=== PATIENT | male | born 1980 | race Caucasian/White ===

== ENCOUNTER 2018-03-26 11:57 | Emergency (ER) | payer BC, OTHER ==
--- NOTE | 2018-03-26 13:33 | EDM.PDOC ---
ED HPI GENERAL MEDICAL PROBLEM - General Chief Complaint: Headache Stated Complaint: NUMBNESS IN HANDS Time Seen by Provider: 03/26/18 12:12 Source of Information: Reports: Patient History Limitations: Reports: No Limitations - History of Present Illness INITIAL COMMENTS - FREE TEXT/NARRATIVE: Patient is a 37-year-old male who presents to the ED complaining of numbness and tingling to his hands for the past month. He was evaluated this last week in the clinic and prescribed wrist braces to be worn at night at night for carpal tunnel syndrome. In addition patients been having intermittent headache to the posterior aspect of his head. This started this morning. Had some intermittent blurry vision. There is no weakness, dizziness, chest pain, shortness breath, or any focal neurological deficits. Headache is mild in nature. States he has been under a lot more stress at work and with his family. He's had no symptoms as such. Still anxious. He questions that is not related to his blood pressure. He does not drink caffeinated beverages and or energy drinks. Nor does he smoke and or use recreational drug use. Of note patient has been using Hydroxycut for the past 2 and half weeks with onset of his increased anxiety. Patient has no previous past medical history. There is no first degree relative with coronary disease. He is currently taking no medications. Surgical history noncontributory. Posterior Headache Pain Score (Numeric/FACES): 3 - Related Data Allergies Allergy/AdvReac Type Severity Reaction Status Date / Time latex Allergy Hives Verified 03/26/18 12:10 Home Meds: Home Meds . [No Known Home Meds] 03/26/18 [History] Past Medical History - Past Health History Medical/Surgical History: Denies Medical/Surgical History Gastrointestinal History: Reports: Other (See Below) Other Gastrointestinal History: Hernia - Past Surgical History HEENT Surgical History: Reports: Oral Surgery GI Surgical History: Reports: Hernia, Inguinal, Hernia Repair/Other, Other (See Below) Other Male Surgeries/Procedures: hydroselectomy Social & Family History - Family History Family Medical History: Noncontributory - Tobacco Use Smoking Status *Q: Never Smoker - Recreational Drug Use Recreational Drug Use: No ED ROS GENERAL - Review of Systems Review Of Systems: ROS reveals no pertinent complaints other than HPI. - Physical Exam Exam: See Below Exam Limited By: No Limitations General Appearance: Alert, WD/WN, No Apparent Distress Eye Exam: Bilateral Eye: EOMI, PERRL Ears: Hearing Grossly Normal Nose: Normal Inspection Throat/Mouth: Normal Voice, No Airway Compromise Head Exam: Atraumatic, Normocephalic Neck: Normal Inspection, Supple, Non-Tender, Full Range of Motion Respiratory/Chest: No Respiratory Distress, Lungs Clear, Normal Breath Sounds, No Accessory Muscle Use, Chest Non-Tender Cardiovascular: Normal Peripheral Pulses, Regular Rate, Rhythm GI/Abdominal: Normal Bowel Sounds, Soft, Non-Tender, No Organomegaly Neuro Exam (Abbreviated): Alert, Oriented, CN II-XII Intact, Normal Cognition, Normal Gait, No Motor/Sensory Deficits, Other (Cerebellar fx intact: finger to nose, rapid alternating movements, and heal to valles. Gait normal. ) Back Exam: Normal Inspection Extremities: Normal Inspection, Non-Tender Psychiatric: Normal Affect, Anxious Skin Exam: Warm, Dry, Intact, Normal Color, No Rash Course - Vital Signs Last Recorded V/S: Last Vital Signs Temp 97.1 F 03/26/18 12:05 Pulse 79 03/26/18 13:30 Resp 18 03/26/18 13:30 BP 143/93 H 03/26/18 13:30 Pulse Ox 95 03/26/18 13:30 - Re-Assessments/Exams Free Text/Narrative Re-Assessment/Exam: Patient refuses to have any labs and or medications. Requests allowing him to relax and see if his BP decreases. Headache is gone with admission to the E.D. 1305 Reassessment, BP 143/100. Patients headache is gone. Offered to start patient on low dose lisinopril or HCTZ. Patient refuses and will followup with PCP in 10 days. I discussed return precautions to return to the E.D. Patient voiced understanding. Discharge instructions as documented. Departure - Departure Time of Disposition: 13:29 Disposition: Home, Self-Care 01 Condition: Good Clinical Impression: Stress Headache Qualifiers: Headache type: unspecified Headache chronicity pattern: unspecified pattern Intractability: not intractable Qualified Code(s): R51 - Headache Hypertension Qualifiers: Hypertension type: unspecified Qualified Code(s): I10 - Essential (primary) hypertension - Discharge Information Instructions: How to Take Your Blood Pressure, [id number], DASH Eating Plan, Managing Your Hypertension, Hypertension Referrals: PCP,Not In Area [Primary Care Provider] - Forms: ED Department Discharge, ED Return to Work/School Form Additional Instructions: As discussed blood pressure was elevated with admission to the ED. You were fairly anxious and also complained of mild headache. I do suspect the elevation of blood pressure was related to worrying about the headache, stress, worrying about numbness to hands, and being on Hydroxycut. Please stop the Hydroxycut. Push the fluids. Follow-up with your primary care provider upon returning home for further evaluation. Please return to the E.D. for any new or worsening symptoms. Checked your blood pressure every other day at different times during the day. Allow yourself approximately 15 minutes to relax prior to taking. Do not take if in pain, with increased anxiety, or just had exercised. Keep a log with the blood pressure readings. Take your blood pressure machine and log with you to your next appointment with PCP to ensure blood pressure machine is calibrated appropriately. As for the numbness to the hands. Do suspect this is related to carpal tunnel syndrome since it worsens with typing. Wear the wrist splint as directed. Follow-up with orthopedic surgery for EMG testing and also definitive treatment.
[2018-03-26 16:59] VITALS: BP 143/93
== END 2018-03-26 13:40 | disposition home or self-care (01) ==
LOC: JD.ED 11:57
DX: F43.9 Reaction to severe stress, unspecified (principal); I10 Essential (primary) hypertension; Z91.040 Latex allergy status
CPT/HCPCS: 99283; 99284